=== PATIENT | female | born 1960 | race African-American/Black ===

== ENCOUNTER 2019-04-12 06:18 | Emergency (ER) | payer OTHER ==
[~2019-04-12] VITALS: Ht 167.6 cm; Wt 124.7 kg
--- NOTE | 2019-04-12 06:43 | Emergency Room Report ---
History of Present Illness General Chief Complaint: Chest Pain Source: Patient Present Illness HPI Patient presents to the emergency department today complaining of chest discomfort. Patient states that she has been coughing for couple weeks. Whenever she coughs she develops chest pain on the right side. She states it is worse with deep inspiration. She states that she had a really bad coughing episode yesterday where she felt like she might have popped something on her right side of the chest. Her chest wall is tender. She states that since then she has had worsening pain with deep inspiration. She denies any leg pain leg swelling. Denies any exertional chest pain. Denies any fever nausea vomiting diarrhea chills. Denies any hemoptysis. No other modifying factors. No other associated signs and symptoms. No other complaints were noted. Symptoms noted to be moderate. Allergies: Coded Allergies: PENICILLINS (Verified Allergy, Unknown, 04/12/19) Patient History Past Medical History: none Past Surgical History: none Pertinent Family History: none Social History: Denies: smoking, alcohol use, drug use Reviewed Nursing Documentation: PMH: Agreed; PSxH: Agreed Nursing Documentation-PMH Past Medical History: No Stated History Review of Systems All Other Systems: negative except mentioned in HPI Physical Exam Vital Signs Date Time Temp Pulse Resp B/P (MAP) Pulse Ox O2 Delivery O2 Flow Rate FiO2 04/12/19 06:34 98.1 64 22 141/76 (97) 99 Room Air Sp02 EP Interpretation: reviewed, normal General Appearance: normal inspection, well appearing, no apparent distress, alert Head: atraumatic Eyes: bilateral eye normal inspection ENT: normal ENT inspection, hearing grossly normal, normal voice Neck: normal inspection, full range of motion, supple, no bony tend Respiratory: normal inspection, lungs clear, normal breath sounds, no respiratory distress, no retraction, no wheezing, other - Tender anterior chest wall. Cardiovascular #1: regular rate, rhythm, no edema Gastrointestinal: normal inspection, normal bowel sounds, non tender, soft, no guarding, no hernia Genitourinary: no CVA tenderness Musculoskeletal: normal inspection, back normal, normal range of motion Neurologic: alert, responsive, speech normal, normal inspection Psychiatric: normal inspection, judgement/insight normal, mood/affect normal Skin: no rash Medical Decision Making Diagnostic Impression: Primary Impression: Cough Additional Impression: Chest pain ER Course Patient presented to the emergency department today complaining of chest pain. Differential diagnoses include acute coronary syndrome, pulmonary embolism, pneumothorax, chest wall pain, pleurisy, pericarditis, acute anxiety reaction just to name a few. Given the severity of the patient's presentation I felt this is a highly complex patient. This patient required extensive workup. CBC , chemistry, EKG, chest x-ray, cardiac enzymes, liver profile were all obtained. 12-lead EKG performed for nontraumatic chest pain. PQRS documentation: EKG was performed. Please refer to below for interpretation. Patient's laboratory work-up was negative. Chest x-ray is normal. EKG was normal as well. Given patient's history patient likely had chest pain secondary to muscle strain or costochondritis with chest wall pain. I felt the patient can be treated as an outpatient. Patient was given prescription for albuterol for her cough as well as Motrin. She is advised to follow-up outpatient with primary care physician. Patient's glucose noted to be slightly elevated patient was advised to follow- up about her glucose as she might likely have diabetes given that this was a fasting glucose. Patient also had slightly elevated blood pressures although they were not severe she was advised to have a blood pressure check for possible hypertension. Patient is advised to follow up with primary doctor in 2-3 days and return the emergency room for any worsening symptoms and as needed. Labs Test 04/12/19 06:50 White Blood Count 8.9 K/UL (4.8-10.8) Red Blood Count 4.43 M/UL (4.20-5.40) Hemoglobin 12.3 G/DL (12.0-16.0) Hematocrit 37.7 % (37.0-47.0) Mean Corpuscular Volume 85 FL (80-99) Mean Corpuscular Hemoglobin 27.8 PG (27.0-31.0) Mean Corpuscular Hemoglobin Concent 32.7 G/DL (32.0-36.0) Red Cell Distribution Width 12.5 % (11.6-14.8) Platelet Count 216 K/UL (150-450) Mean Platelet Volume 8.8 FL (6.5-10.1) Neutrophils (%) (Auto) 67.6 % (45.0-75.0) Lymphocytes (%) (Auto) 21.8 % (20.0-45.0) Monocytes (%) (Auto) 6.2 % (1.0-10.0) Eosinophils (%) (Auto) 3.1 % (0.0-3.0) Basophils (%) (Auto) 1.2 % (0.0-2.0) Sodium Level 141 MMOL/L (136-145) Potassium Level 4.3 MMOL/L (3.5-5.1) Chloride Level 106 MMOL/L (98-107) Carbon Dioxide Level 30 MMOL/L (21-32) Anion Gap 5 mmol/L (5-15) Blood Urea Nitrogen 19 mg/dL (7-18) Creatinine 0.6 MG/DL (0.55-1.30) Estimat Glomerular Filtration Rate > 60 mL/min (>60) Glucose Level 186 MG/DL (74-106) Calcium Level 8.4 MG/DL (8.5-10.1) Total Bilirubin 0.5 MG/DL (0.2-1.0) Aspartate Amino Transf (AST/SGOT) 20 U/L (15-37) Alanine Aminotransferase (ALT/SGPT) 22 U/L (12-78) Alkaline Phosphatase 69 U/L (46-116) Troponin I 0.000 ng/mL (0.000-0.056) Total Protein 8.2 G/DL (6.4-8.2) Albumin 3.1 G/DL (3.4-5.0) Globulin 5.1 g/dL Albumin/Globulin Ratio 0.6 (1.0-2.7) EKG Diagnostic Results Rate: normal Rhythm: NSR ST Segments: no acute changes Rhythm Strip Diag. Results EP Interpretation: yes Rate: 60s Rhythm: NSR, no PVC's, no ectopy Chest X-Ray Diagnostic Results Chest X-Ray Diagnostic Results : Chest X-Ray Ordered: Yes # of Views/Limited/Complete: 1 View Indication: Chest Pain EP Interpretation: Yes Interpretation: no consolidation, no effusion, no pneumothorax, no acute cardiopulmonary disease Impression: No acute disease Electronically Signed by: Electronically signed by Nikita Fisher MD Last Vital Signs Date Time Temp Pulse Resp B/P (MAP) Pulse Ox O2 Delivery O2 Flow Rate FiO2 04/12/19 06:34 98.1 64 22 141/76 (97) 99 Room Air Status: improved Disposition: HOME, SELF-CARE Condition: Stable Scripts Ibuprofen* (MOTRIN*) 600 Mg Tablet 600 MG ORAL Q8H PRN for For Pain, #15 TAB 0 Refills Prov: Nikita Fisher MD 04/12/19 Albuterol Sulfate* (ALBUTEROL SULFATE MDI*) 8.5 Gm Hfa.aer.ad 2 PUFF INH Q4H PRN for cough/wheezing, #1 EA 0 Refills Prov: Nikita Fisher MD 04/12/19 Nikita Fisher MD Apr 12, 2019 06:43
[2019-04-12 07:18] LABS: BASOPHILS % (AUTO) 1.2 % (0.0-2.0); EOSINOPHILS % (AUTO) 3.1 % (0.0-3.0); HEMATOCRIT 37.7 % (37.0-47.0); HEMOGLOBIN 12.3 G/DL (12.0-16.0); LYMPHOCYTES % (AUTO) 21.8 % (20.0-45.0); MEAN CORPUSCULAR VOLUME 85 FL (80-99); MONOCYTES % (AUTO) 6.2 % (1.0-10.0); NEUTROPHILS % (AUTO) 67.6 % (45.0-75.0); PLATELET COUNT 216 K/UL (150-450); RED BLOOD COUNT 4.43 M/UL (4.20-5.40); RED CELL DISTRIBUTION WIDTH 12.5 % (11.6-14.8); WHITE BLOOD COUNT 8.9 K/UL (4.8-10.8)
[2019-04-12 07:20] VITALS: BP 137/86
[2019-04-12 07:25] LABS: ANION GAP 5 mmol/L (5-15); BLOOD UREA NITROGEN 19 mg/dL (7-18); CALCIUM 8.4 MG/DL (8.5-10.1); CARBON DIOXIDE 30 MMOL/L (21-32); CHLORIDE 106 MMOL/L (98-107); CREATININE 0.6 MG/DL (0.55-1.30); POTASSIUM 4.3 MMOL/L (3.5-5.1); SODIUM 141 MMOL/L (136-145)
[2019-04-12 07:30] LABS: ALANINE AMINOTRANSFERASE 22 U/L (12-78); ALBUMIN 3.1 G/DL (3.4-5.0); ALBUMIN/GLOBULIN RATIO 0.6 (1.0-2.7); ALKALINE PHOSPHATASE 69 U/L (46-116); ASPARTATE AMINO TRANSFERASE 20 U/L (15-37); BILIRUBIN,TOTAL 0.5 MG/DL (0.2-1.0)
[2019-04-12] MEDS ORDERED: ALBUTEROL SULF8.5 GM INH (07:40)
[2019-04-12] MEDS ORDERED: IBUPROFEN600 MG ORAL (07:40)
[2019-04-12 08:06] VITALS: BP 147/75
--- NOTE | 2019-04-12 15:33 | Diagnostic Imaging Report ---
Indication: Cough Technique: One view of the chest Comparison: none Findings: Body habitus limits evaluation. Lungs and pleural spaces are grossly clear. Heart size is normal. Impression: No acute process
== END 2019-04-12 08:06 | disposition home or self-care (01) ==
LOC: EMR 06:40
DX: R05 Cough (principal); R07.9 Chest pain, unspecified; Z88.0 Allergy status to penicillin
CPT/HCPCS: 36415; 71045; 80053; 84484; 85025; 93005; 99284

== ENCOUNTER 2019-04-22 08:14 | Emergency (ER) | payer OTHER ==
[~2019-04-22] VITALS: Ht 167.6 cm; Wt 124.7 kg
[~2019-04-22 08:14] MED LIST: ALBUTEROL SULF8.5 GM INH; IBUPROFEN600 MG ORAL
--- NOTE | 2019-04-22 08:40 | NUR ---
ED Nurse Note: Pt walked into ED w/ c/o epistaxis for past 36 hours. Pt states she has had nosebleed 4x with lots of blood. MD Gordon at bedside. Patients VSS. Pt is alert and orientedx4, ambulatory.
[2019-04-22 08:45] VITALS: BP 113/70
[2019-04-22] MEDS ORDERED: Oxymetazoline 0.05% Na Spray 30ml NASAL ONE (08:45)
--- NOTE | 2019-04-22 09:03 | Emergency Room Report ---
History of Present Illness General Chief Complaint: Nosebleed Source: Patient Present Illness HPI 58-year-old female presents ED for evaluation. Complaining of nosebleed. Started 36 hours ago. Has had multiple episodes. Notes blood clots. Denies trauma. Does not take blood thinners. Denies pain. No other aggravating relieving factors. Denies any other associated symptoms Allergies: Coded Allergies: PENICILLINS (Verified Allergy, Unknown, 04/12/19) Patient History Past Medical History: none Past Surgical History: none Pertinent Family History: none Social History: Denies: smoking, alcohol use, drug use Now: No Immunizations: UTD Reviewed Nursing Documentation: PMH: Agreed; PSxH: Agreed Nursing Documentation-PMH Past Medical History: No Stated History Review of Systems All Other Systems: negative except mentioned in HPI Physical Exam Vital Signs Date Time Temp Pulse Resp B/P (MAP) Pulse Ox O2 Delivery O2 Flow Rate FiO2 04/22/19 08:20 98.1 72 17 114/64 (81) 99 Room Air Sp02 EP Interpretation: reviewed, normal General Appearance: no apparent distress, alert, GCS 15, non-toxic Head: normocephalic Eyes: bilateral eye normal inspection, bilateral eye PERRL ENT: hearing grossly normal, normal pharynx, no angioedema, normal voice, other - blood in bilateral nares. no active bleeding Neck: normal inspection Respiratory: chest non-tender, lungs clear, normal breath sounds, speaking full sentences Cardiovascular #1: regular rate, rhythm, no edema Gastrointestinal: normal inspection Rectal: deferred Genitourinary: no CVA tenderness Musculoskeletal: normal inspection Neurologic: alert, motor strength/tone normal, oriented x3, sensory intact, responsive, speech normal Psychiatric: normal inspection Skin: no rash Lymphatic: normal inspection Medical Decision Making Diagnostic Impression: Primary Impression: Epistaxis ER Course 58-year-old female presents to ED with epistaxis. No trauma Differential-anterior epistaxis, posterior epistaxis, coagulopathy Patient placed on stretcher. After initial history, physical exam reveals elderly female in no acute distress. There is blood in both nostrils. However not actively bleeding. Afrin spray applied. Pressure applied. On reassessment there is no active bleeding. Discussed with patient. No indication for Rhino Rocket or other hemostasis control. Bacitracin applied. Will discharge to home. Safe for discharge for close outpatient follow-up Diagnoses- epistaxis Stable and discharged to home with prescription for bacitracin. Followup with ENT/PMD. Return to ED if symptoms recur or worsen Last Vital Signs Date Time Temp Pulse Resp B/P (MAP) Pulse Ox O2 Delivery O2 Flow Rate FiO2 04/22/19 08:45 98.5 88 19 113/70 98 Room Air Status: improved Disposition: HOME, SELF-CARE Condition: Stable Scripts Bacitracin (Bacitracin) 28.4 Gm Oint...g. 1 APPLIC TOPIC THREE TIMES A DAY, #28.4 GM Prov: Barry Gordon MD 04/22/19 Barry Gordon MD Apr 22, 2019 09:03
[2019-04-22] MEDS ORDERED: Bacitracin Oint UD TOPIC ONE (09:30)
[2019-04-22] MEDS ORDERED: BACITRACIN15 GM TOPIC (09:39)
[2019-04-22 09:50] VITALS: BP 118/71
--- NOTE | 2019-04-22 09:50 | NUR ---
ER DISCHARGE NOTE: Patient is cleared to be discharged per ERMD, pt is aox4, on room air, with stable vital signs. pt was given dc and prescription instructions, pt was able to verbalize understanding, pt id band removed. pt is able to ambulate with steady gait. pt took all belongings. Pt educated on bacitracin.
== END 2019-04-22 09:50 | disposition home or self-care (01) ==
LOC: EMR 09:30
DX: R04.0 Epistaxis (principal); Z88.0 Allergy status to penicillin
CPT/HCPCS: 99282